=== PATIENT | male | born 1975 | race American Indian/Alaskan Native ===

== ENCOUNTER 2020-10-04 05:55 | Observation (INO) | payer OTHER ==
--- NOTE | 2020-10-04 07:08 | Emergency Department Report ---
ED Shortness of Breath HPI - General Stated Complaint: KEVIN/ASTHMA Time Seen by Provider: 10/04/20 07:01 - History of Present Illness Initial Comments: 45-year-old male, history of asthma, presents to ED with difficulty breathing. Patient states over the last 4 days he has been having increased bleeding. States he ran out of his albuterol inhaler. EMS was called this morning. They report patient was in tripod position, with O2 sats of 84% on room air. He was given albuterol 10 mg nebulizer, Decadron 20 mg by EMS. Patient denies any fever. Reports cough. Reports he is fully vaccinated against COVID-19 with Moderna vaccine 3 months ago. Patient reports tobacco and marijuana use. MD Complaint: "asthma attack" -: days(s) (4) Severity: moderate Improves With: bronchodilators Worsens With: exertion, other (Smoking) Known History Of: asthma Associated Symptoms: cough Treatments Prior to Arrival: bronchodilator, other (Decadron) - Related Data Home Oxygen Therapy: No Allergies Allergy/AdvReac Type Severity Reaction Status Date / Time No Known Allergies Allergy Unverified 10/04/20 08:04 ED Review of Systems ROS: Stated complaint: KEVIN/ASTHMA Other details as noted in HPI Comment: All other systems reviewed and negative Constitutional: denies: fever Respiratory: cough, shortness of breath, wheezing ED Physical Exam - General General appearance: alert - Head Head exam: Present: atraumatic, normocephalic - Eye Eye exam: Present: normal appearance, EOMI - ENT ENT exam: Present: mucous membranes moist - Neck Neck exam: Present: normal inspection - Respiratory Respiratory exam: Present: wheezes, other (Tachypnea present) - Cardiovascular Cardiovascular Exam: Present: normal rhythm, tachycardia - GI/Abdominal GI/Abdominal exam: Present: soft. Absent: distended, tenderness - Extremities Exam Extremities exam: Present: normal inspection - Neurological Exam Neurological exam: Present: alert, oriented X3 - Psychiatric Psychiatric exam: Present: normal affect, normal mood - Skin Skin exam: Present: warm, dry, intact, normal color ED Course Vital Signs 10/04/20 10/04/20 10/04/20 07:19 09:21 09:30 Temperature 98.6 F Pulse Rate 112 H 123 H Pulse Rate [ 108 H Anterior Bilateral Throughout] Respiratory 22 20 Rate Respiratory 22 Rate [Anterior Bilateral Throughout] Blood Pressure 156/110 Blood Pressure 164/114 [Left] O2 Sat by Pulse 93 90 Oximetry 10/04/20 10/04/20 10/04/20 10:00 10:28 10:30 Temperature Pulse Rate 114 H 118 H Pulse Rate [ 109 H Anterior Bilateral Throughout] Respiratory 16 22 Rate Respiratory 26 H Rate [Anterior Bilateral Throughout] Blood Pressure 163/100 164/110 Blood Pressure [Left] O2 Sat by Pulse 89 91 Oximetry 10/04/20 10/04/20 10/04/20 10:46 11:00 11:15 Temperature Pulse Rate 113 H 117 H 121 H Pulse Rate [ Anterior Bilateral Throughout] Respiratory 25 H 30 H 20 Rate Respiratory Rate [Anterior Bilateral Throughout] Blood Pressure 166/106 163/107 161/108 Blood Pressure [Left] O2 Sat by Pulse 91 92 93 Oximetry 10/04/20 10/04/20 10/04/20 11:30 11:48 12:02 Temperature Pulse Rate Pulse Rate [ Anterior Bilateral Throughout] Respiratory Rate Respiratory Rate [Anterior Bilateral Throughout] Blood Pressure 161/108 161/108 161/108 Blood Pressure [Left] O2 Sat by Pulse 94 80 L 77 L Oximetry 10/04/20 10/04/20 10/04/20 12:15 12:49 14:10 Temperature Pulse Rate 65 Pulse Rate [ Anterior Bilateral Throughout] Respiratory 13 Rate Respiratory Rate [Anterior Bilateral Throughout] Blood Pressure 161/108 161/108 161/108 Blood Pressure [Left] O2 Sat by Pulse 87 85 95 Oximetry ED Medical Decision Making - Lab Data Result diagrams: 10/04/20 11:46 10/04/20 11:46 - Radiology Data Radiology results: report reviewed, image reviewed - Medical Decision Making 45-year-old male, history of asthma, presents to ED with acute asthma exacerbation. Patient received 10 mg albuterol nebulizer from EMS, along with IV Decadron 20 mg. Upon arrival here in the ED he received another albuterol 5 mg/Atrovent 0.5 mg nebulizer and magnesium sulfate 2 g IV. Upon reevaluation, patient still have coarse wheezing throughout. Another albuterol 5 mg/Atrovent 0.5 mg nebulizer treatment was given. Patient feeling better, however with ambulation, O2 sats dropped to 89% and patient became tachypneic again. Chest x-ray is normal. Labs unremarkable. Patient will be admitted to hospitalist, Dr. Khan, for further management. - Differential Diagnosis Asthma, pneumonia Critical Care Time: Yes Critical care time in (mins) excluding proc time.: 35 Critical care attestation.: If time is entered above; I have spent that time in minutes in the direct care of this critically ill patient, excluding procedure time. Critical Care Time: 35 min ED Disposition Clinical Impression: Status asthmaticus, Hypoxia Disposition: 09 OP ADMIT IP TO THIS HOSP Is pt being admited?: Yes Condition: Stable Time of Disposition: 11:32
--- NOTE | 2020-10-04 07:45 | XRay Report ---
CHEST 1 VIEW 10/04/2020 6:38 AM INDICATION / CLINICAL INFORMATION: SOB, asthma. COMPARISON: None available. FINDINGS: SUPPORT DEVICES: None. HEART / MEDIASTINUM: No significant abnormality. LUNGS / PLEURA: No significant pulmonary abnormality. No significant pleural effusion. No pneumothora x. ADDITIONAL FINDINGS: No significant additional findings. IMPRESSION: 1. No acute abnormality of the chest. Signer Name: Demar Grider MD Signed: 10/04/2020 7:40 AM Workstation Name: [id number]
[2020-10-04] MEDS ORDERED: MAGNESIUM SULFATE 2 GM/50 ML BAG IV NR (08:30)
[2020-10-04] MEDS ORDERED: IPRATROPIUM 0.02% NEBU 2.5 ML IH NR (08:30)
[2020-10-04] MEDS ORDERED: ALBUTEROL 2.5 MG/3 ML NEBU IH NR (08:30)
[2020-10-04] MEDS ORDERED: ALBUTEROL 2.5 MG/3 ML NEBU IH ONE (10:16)
[2020-10-04] MEDS ORDERED: IPRATROPIUM 0.02% NEBU 2.5 ML IH ONE (10:16)
[2020-10-04 12:43] LABS: Hemoglobin 16.4 gm/dl (11.8-15.2); Mean Corpuscular HGB Conc 33 % (32-34); Mean Corpuscular Volume 89 fl (84-94); Platelet Count 462 K/mm3 (140-440)
[2020-10-04 13:01] LABS: BUN/Creatinine Ratio 10; Blood Urea Nitrogen 10 mg/dL (9-20); Calcium 10.1 mg/dL (8.4-10.2); Hemolysis Index 22
--- NOTE | 2020-10-04 14:45 | History and Physical Report ---
History of Present Illness Date of examination: 10/04/20 Date of admission: 10/04/20 11:56 Chief complaint: Shortness of breath and wheezing for 2 days History of present illness: 45-year-old -[place] male with history of asthma on albuterol MDI has been short of breath and wheezing for last 48 to 72 hours. Patient says that he has been smoking off and on and stopped smoking 2 weeks ago and restarted again couple days ago which has precipitated his wheezing and cough. Patient wheezing a lot and cough productive of mucoid sputum. No fever or chills. Patient had vaccination--Covid vaccination probably Moderna. No loss of smell or taste. Wheezing excessively. No exacerbating or relieving factors except smoking which exacerbates. Relieved with bronchodilators. Past History Past Medical History: other (Asthma) Past Surgical History: No surgical history Social history: lives with family, full code Family history: hypertension Medications and Allergies Allergies Allergy/AdvReac Type Severity Reaction Status Date / Time No Known Allergies Allergy Unverified 10/04/20 08:04 Review of Systems All systems: negative Constitutional: no weight loss, no weight gain, no fever, no chills, no sweats, no night sweats Ears, nose, mouth and throat: no ear pain, no ear discharge, no tinnitis, no decreased hearing Cardiovascular: shortness of breath, no chest pain, no orthopnea, no palpitations, no rapid/irregular heart beat, no lightheadedness Respiratory: cough, cough with sputum, wheezing Gastrointestinal: no abdominal pain, no nausea, no vomiting, no diarrhea Genitourinary Male: no dysuria, no hematuria, no flank pain, no discharge, no urinary frequency, no urinary hesitancy Rectal: incontinence Musculoskeletal: no neck stiffness, no neck pain Integumentary: no rash, no pruritis Neurological: no head injury, no transient paralysis, no paralysis, no weakness Psychiatric: no anxiety, no memory loss, no change in sleep habits, no sleep disturbances, no insomnia Endocrine: no polyphagia, no excessive thirst, no polydipsia, no polyuria Hematologic/Lymphatic: no easy bruising Allergic/Immunologic: allergic rhinitis, no wheezing Exam - Constitutional Vitals: Temp Pulse Resp BP Pulse Ox 98.6 F 65 13 161/108 95 10/04/20 07:19 10/04/20 14:10 10/04/20 14:10 10/04/20 14:10 10/04/20 14:10 General appearance: Present: mild distress, well-nourished - EENT Eyes: Present: PERRL ENT: hearing intact, clear oral mucosa - Neck Neck: Present: supple, normal ROM - Respiratory Respiratory effort: normal Respiratory: bilateral: CTA, rhonchi, wheezing - Cardiovascular Heart rate: 88 Rhythm: regular Heart Sounds: Present: S1 & S2. Absent: rub, click - Extremities Extremities: pulses symmetrical, No edema Peripheral Pulses: within normal limits - Abdominal General gastrointestinal: Present: soft, non-tender, non-distended, normal bowel sounds Male genitourinary: Present: normal - Integumentary Integumentary: Present: clear, warm, dry - Musculoskeletal Musculoskeletal: gait normal, strength equal bilaterally - Psychiatric Psychiatric: appropriate mood/affect, intact judgment & insight - Neurologic Neurologic: CNII-XII intact, moves all extremities HEART Score - HEART Score History: Slightly suspicious Age: < 45 Risk factors: No known risk factors Troponin: < normal limit - Critical Actions Critical Actions: 0-3 pts:0.9-1.7%risk of adverse cardiac event.Candidate for discharge Results - Labs CBC & Chem 7: 10/04/20 11:46 10/04/20 11:46 Labs: Laboratory Last Values WBC 8.2 K/mm3 (4.5-11.0) 10/04/20 11:46 RBC 5.60 M/mm3 (3.65-5.03) H 10/04/20 11:46 Hgb 16.4 gm/dl (11.8-15.2) H 10/04/20 11:46 Hct 50.0 % (35.5-45.6) H 10/04/20 11:46 MCV 89 fl (84-94) 10/04/20 11:46 MCH 29 pg (28-32) 10/04/20 11:46 MCHC 33 % (32-34) 10/04/20 11:46 RDW 14.0 % (13.2-15.2) 10/04/20 11:46 Plt Count 462 K/mm3 (140-440) H 10/04/20 11:46 Seg Neutrophils % Hazmat Cdl A Driver 10/04/20 11:46 Sodium 137 mmol/L (137-145) 10/04/20 11:46 Potassium 4.5 mmol/L (3.6-5.0) 10/04/20 11:46 Chloride 92.7 mmol/L (98-107) L 10/04/20 11:46 Carbon Dioxide 30 mmol/L (22-30) 10/04/20 11:46 Anion Gap 19 mmol/L 10/04/20 11:46 BUN 10 mg/dL (9-20) 10/04/20 11:46 Creatinine 1.0 mg/dL (0.8-1.3) 10/04/20 11:46 Estimated GFR > 60 ml/min 10/04/20 11:46 BUN/Creatinine Ratio 10 % 10/04/20 11:46 Glucose 170 mg/dL (75-100) H 10/04/20 11:46 Calcium 10.1 mg/dL (8.4-10.2) 10/04/20 11:46 - Imaging and Cardiology Chest x-ray: report reviewed Imaging and Cardiology: Chest x-ray No acute abnormality of the chest Assessment and Plan Advance Directives: Yes (Full code ) VTE prophylaxis?: Chemical Plan of care discussed with patient/family: Yes - Patient Problems (1) Acute respiratory failure with hypoxia Current Visit: Yes Status: Acute Plan to address problem: Patient was initially hypoxic Stabilized now After nebulizer treatments Continue oxygen supplementation (2) Asthma exacerbation Current Visit: Yes Status: Acute Qualifiers: Asthma severity: moderate Plan to address problem: Patient is tachypneic and accessory muscles of respiration are prominent DuoNeb's [id number] and every 3 as needed IV Solu-Medrol 125 every 8 hours IV Levaquin 750 mg every 24 Pulmicort twice daily Patient also started on Singulair to prevent asthma attacks (3) Polycythemia due to fall in plasma volume Current Visit: Yes Status: Acute Plan to address problem: Probably secondary to volume depletion IV normal saline for now Recheck hemoglobin and hematocrit tomorrow (4) Hyperglycemia Current Visit: Yes Status: Acute Plan to address problem: Patient is a blood glucose level of 172 No history of diabetes May have latent diabetes We will get your hemoglobin A1c In the meantime we will be doing insulin coverage Will defer to primary team to take care of the hyperglycemia (5) DVT prophylaxis Current Visit: Yes Status: Acute Plan to address problem: Patient on heparin subcu and GI prophylaxis
[2020-10-04 15:16] LABS: Band Neutrophils # (Manual) 0.1 K/mm3; Platelet Estimate Consistent w Auto; RBC Morphology Normal; Total Cells Counted 100
[2020-10-04] MEDS ORDERED: ACETAMINOPHEN 325 MG TAB PO PRN (15:30)
[2020-10-04] MEDS ORDERED: SODIUM CHLORIDE 0.9% 1000 ML 1,000 ML IV SCH (16:00)
[2020-10-04] MEDS ORDERED: METOCLOPRAMIDE 10 MG/2 ML INJ IV PRN (16:00)
[2020-10-04] MEDS ORDERED: ONDANSETRON 4 MG/2 ML INJ IV PRN (16:00)
[2020-10-04] MEDS ORDERED: HYDROmorphone 1 MG/1 ML INJ IV PRN (16:00)
[2020-10-04] MEDS ORDERED: oxyCODONE /ACETAMINOPHEN 5-325MG TAB PO PRN (16:00)
[2020-10-04] MEDS: methylPREDNISolone Sod Succinate 125 MG/2 ML INJ IV SCH ×2 (16:18→22:04)
[2020-10-04] MEDS: FAMOTIDINE 20 MG/2 ML INJ IV SCH ×2 (16:18→22:11)
[2020-10-04] MEDS: IPRATROPIUM/ALBUTEROL SULFATE 3 ML AMPUL.NEB IH PRN (16:27)
[2020-10-04] MEDS: IPRATROPIUM/ALBUTEROL SULFATE 3 ML AMPUL.NEB IH SCH ×2 (16:31→20:06)
[2020-10-04] MEDS: BUDESONIDE 0.5 MG/2 ML NEBU IH SCH (20:06)
[2020-10-04] MEDS: HEPARIN 5,000 UNIT/1 ML VIAL SUB-Q SCH (22:07)
[2020-10-04] MEDS: MONTELUKAST 10 MG TAB PO SCH (22:08)
[2020-10-04] MEDS: guaiFENesin 100 MG/5 ML ORAL LIQD PO PRN (23:06)
[2020-10-05] MEDS ORDERED: hydrALAZINE 20 MG/1 ML INJ IV PRN (05:50)
[2020-10-05 06:12] LABS: Basophils % (Auto) 0.3 % (0.0-1.8); Lymphocytes % (Auto) 9.4 % (13.4-35.0); Monocytes # (Auto) 0.5 K/mm3 (0.0-0.8); Monocytes % (Auto) 4.1 % (0.0-7.3)
[2020-10-05 06:17] LABS: Hematocrit 44.1 % (35.5-45.6); Mean Corpuscular HGB Conc 34 % (32-34); Mean Corpuscular Volume 89 fl (84-94); Platelet Count 399 K/mm3 (140-440); Red Blood Count 4.96 M/mm3 (3.65-5.03); Red Cell Distribution Width 13.6 % (13.2-15.2)
[2020-10-05] MEDS: guaiFENesin 100 MG/5 ML ORAL LIQD PO PRN ×3 (06:21→20:40)
[2020-10-05] MEDS: methylPREDNISolone Sod Succinate 125 MG/2 ML INJ IV SCH (06:21)
[2020-10-05 06:35] LABS: Alanine Aminotransferase 40 units/L (7-56); Albumin 4.6 g/dL (3.9-5); BUN/Creatinine Ratio 14; Blood Urea Nitrogen 13 mg/dL (9-20); Calcium 9.7 mg/dL (8.4-10.2); Hemolysis Index 13
[2020-10-05] MEDS: BUDESONIDE 0.5 MG/2 ML NEBU IH SCH ×2 (08:57→21:19)
[2020-10-05] MEDS: IPRATROPIUM/ALBUTEROL SULFATE 3 ML AMPUL.NEB IH SCH ×4 (08:57→21:19)
[2020-10-05] MEDS: FAMOTIDINE 20 MG TAB PO SCH ×2 (09:28→22:09)
[2020-10-05] MEDS: HEPARIN 5,000 UNIT/1 ML VIAL SUB-Q SCH ×2 (09:28→22:09)
--- NOTE | 2020-10-05 11:53 | Progress Note ---
Assessment and Plan Assessment and plan: (1) Acute respiratory failure with hypoxia Current Visit: Yes Status: Acute Plan to address problem: Patient was initially hypoxic Stabilized now After nebulizer treatments Continue oxygen supplementation (2) Asthma exacerbation Current Visit: Yes Status: Acute Qualifiers: Asthma severity: moderate Plan to address problem: Patient is tachypneic and accessory muscles of respiration are prominent DuoNeb's [id number] and every 3 as needed IV Solu-Medrol 125 every 8 hours IV Levaquin 750 mg every 24 Pulmicort twice daily Patient also started on Singulair to prevent asthma attacks (3) Polycythemia due to fall in plasma volume Current Visit: Yes Status: Acute Plan to address problem: Probably secondary to volume depletion IV normal saline for now Recheck hemoglobin and hematocrit tomorrow (4) Hyperglycemia Current Visit: Yes Status: Acute Plan to address problem: Patient is a blood glucose level of 172 No history of diabetes May have latent diabetes We will get your hemoglobin A1c In the meantime we will be doing insulin coverage Will defer to primary team to take care of the hyperglycemia (5) DVT prophylaxis Current Visit: Yes Status: Acute Plan to address problem: Patient on heparin subcu and GI prophylaxis 10/05/2020 -Patient is on 2 L of oxygen, 6-minute walk was done and patient desat to 87%. We will continue with treatment of asthma exacerbation. Patient will be di scharged likely tomorrow. History Interval history: Patient was seen and evaluated this morning Patient stated shortness of breath is getting better Hospitalist Physical - Physical exam Narrative exam: Not in cardiopulmonary distress. The patient appeared well nourished and normally developed. Vital signs as documented. Head exam is unremarkable. No scleral icterus . Neck is without jugular venous distension, thyromegaly, or carotid bruits. Lungs wheezing all over the chest. Cardiac exam reveals regular rate and Rhythm. Abdominal exam reveals normal bowel sounds, nontender, no organomegaly. Extremities are nonedematous and both femoral and pedal pulses are normal. COST MANAGER: Alert and oriented 3. No focal weakness. - Constitutional Vitals: Temp Pulse Resp BP Pulse Ox 98.1 F 118 H 20 193/100 94 10/05/20 05:45 10/05/20 08:57 10/05/20 08:57 10/05/20 06:29 10/05/20 09:03 General appearance: Present: mild distress, well-nourished HEART Score - HEART Score Age: < 45 Risk factors: No known risk factors Troponin: < normal limit - Critical Actions Critical Actions: 0-3 pts:0.9-1.7%risk of adverse cardiac event.Candidate for discharge Results - Labs CBC & Chem 7: 10/05/20 05:35 10/05/20 05:35 Labs: Laboratory Last Values WBC 11.0 K/mm3 (4.5-11.0) 10/05/20 05:35 RBC 4.96 M/mm3 (3.65-5.03) 10/05/20 05:35 Hgb 15.0 gm/dl (11.8-15.2) 10/05/20 05:35 Hct 44.1 % (35.5-45.6) 10/05/20 05:35 MCV 89 fl (84-94) 10/05/20 05:35 MCH 31 pg (28-32) 10/05/20 05:35 MCHC 34 % (32-34) 10/05/20 05:35 RDW 13.6 % (13.2-15.2) 10/05/20 05:35 Plt Count 399 K/mm3 (140-440) 10/05/20 05:35 Lymph % (Auto) 9.4 % (13.4-35.0) L 10/05/20 05:35 [place] % (Auto) 4.1 % (0.0-7.3) 10/05/20 05:35 Eos % (Auto) 0.0 % (0.0-4.3) 10/05/20 05:35 Baso % (Auto) 0.3 % (0.0-1.8) 10/05/20 05:35 Lymph # (Auto) 1.0 K/mm3 (1.2-5.4) L 10/05/20 05:35 [place] # (Auto) 0.5 K/mm3 (0.0-0.8) 10/05/20 05:35 Eos # (Auto) 0.0 K/mm3 (0.0-0.4) 10/05/20 05:35 Baso # (Auto) 0.0 K/mm3 (0.0-0.1) 10/05/20 05:35 Add Manual Diff Complete 10/04/20 11:46 Total Counted 100 10/04/20 11:46 Seg Neutrophils % 86.2 % (40.0-70.0) H 10/05/20 05:35 Seg Neuts % (Manual) 91.0 % (40.0-70.0) H 10/04/20 11:46 Band Neutrophils % 1.0 % 10/04/20 11:46 Lymphocytes % (Manual) 7.0 % (13.4-35.0) L 10/04/20 11:46 Monocytes % (Manual) 1.0 % (0.0-7.3) 10/04/20 11:46 Nucleated RBC % Not Reportable 10/04/20 11:46 Seg Neutrophils # 9.4 K/mm3 (1.8-7.7) H 10/05/20 05:35 Seg Neutrophils # Man 7.5 K/mm3 (1.8-7.7) 10/04/20 11:46 Band Neutrophils # 0.1 K/mm3 10/04/20 11:46 Lymphocytes # (Manual) 0.6 K/mm3 (1.2-5.4) L 10/04/20 11:46 Abs React Lymphs (Man) 0.0 K/mm3 10/04/20 11:46 Monocytes # (Manual) 0.1 K/mm3 (0.0-0.8) 10/04/20 11:46 Eosinophils # (Manual) 0.0 K/mm3 (0.0-0.4) 10/04/20 11:46 Basophils # (Manual) 0.0 K/mm3 (0.0-0.1) 10/04/20 11:46 Metamyelocytes # 0.0 K/mm3 10/04/20 11:46 Myelocytes # 0.0 K/mm3 10/04/20 11:46 Promyelocytes # 0.0 K/mm3 10/04/20 11:46 Blast Cells # 0.0 K/mm3 10/04/20 11:46 WBC Morphology Not Reportable 10/04/20 11:46 Hypersegmented Neuts Not Reportable 10/04/20 11:46 Hyposegmented Neuts Not Reportable 10/04/20 11:46 Hypogranular Neuts Not Reportable 10/04/20 11:46 Smudge Cells Not Reportable 10/04/20 11:46 Toxic Granulation Not Reportable 10/04/20 11:46 Toxic Vacuolation Not Reportable 10/04/20 11:46 Dohle Bodies Not Reportable 10/04/20 11:46 Pelger-Huet Anomaly Not Reportable 10/04/20 11:46 Brittani Rods Not Reportable 10/04/20 11:46 Platelet Estimate Consistent w auto 10/04/20 11:46 Clumped Platelets Not Reportable 10/04/20 11:46 Plt Clumps, EDTA Not Reportable 10/04/20 11:46 Large Platelets Not Reportable 10/04/20 11:46 Giant Platelets Not Reportable 10/04/20 11:46 Platelet Satelliting Not Reportable 10/04/20 11:46 Plt Morphology Comment Not Reportable 10/04/20 11:46 RBC Morphology Normal 10/04/20 11:46 Dimorphic RBCs Not Reportable 10/04/20 11:46 Polychromasia Not Reportable 10/04/20 11:46 Hypochromasia Not Reportable 10/04/20 11:46 Poikilocytosis Not Reportable 10/04/20 11:46 Anisocytosis Not Reportable 10/04/20 11:46 Microcytosis Not Reportable 10/04/20 11:46 Macrocytosis Not Reportable 10/04/20 11:46 Spherocytes Not Reportable 10/04/20 11:46 Pappenheimer Bodies Not Reportable 10/04/20 11:46 Sickle Cells Not Reportable 10/04/20 11:46 Target Cells Not Reportable 10/04/20 11:46 Tear Drop Cells Not Reportable 10/04/20 11:46 Ovalocytes Not Reportable 10/04/20 11:46 Helmet Cells Not Reportable 10/04/20 11:46 Obrien-Crary Bodies Not Reportable 10/04/20 11:46 [place] Rings Not Reportable 10/04/20 11:46 Tiffanie Cells Not Reportable 10/04/20 11:46 Bite Cells Not Reportable 10/04/20 11:46 Crenated Cell Not Reportable 10/04/20 11:46 Elliptocytes Not Reportable 10/04/20 11:46 Acanthocytes (Spur) Not Reportable 10/04/20 11:46 Rouleaux Not Reportable 10/04/20 11:46 Hemoglobin C Crystals Not Reportable 10/04/20 11:46 Schistocytes Not Reportable 10/04/20 11:46 Malaria parasites Not Reportable 10/04/20 11:46 Seb Bodies Not Reportable 10/04/20 11:46 Hem Pathologist Commnt No 10/04/20 11:46 Sodium 137 mmol/L (137-145) 10/05/20 05:35 Potassium 4.9 mmol/L (3.6-5.0) 10/05/20 05:35 Chloride 96.2 mmol/L (98-107) L 10/05/20 05:35 Carbon Dioxide 32 mmol/L (22-30) H 10/05/20 05:35 Anion Gap 14 mmol/L 10/05/20 05:35 BUN 13 mg/dL (9-20) 10/05/20 05:35 Creatinine 0.9 mg/dL (0.8-1.3) 10/05/20 05:35 Estimated GFR > 60 ml/min 10/05/20 05:35 BUN/Creatinine Ratio 14 % 10/05/20 05:35 Glucose 121 mg/dL (75-100) H 10/05/20 05:35 Hemoglobin A1c 5.7 % (4-6) 10/05/20 05:35 Calcium 9.7 mg/dL (8.4-10.2) 10/05/20 05:35 Total Bilirubin 0.20 mg/dL (0.1-1.2) 10/05/20 05:35 AST 33 units/L (5-40) 10/05/20 05:35 ALT 40 units/L (7-56) 10/05/20 05:35 Alkaline Phosphatase 57 units/L (35-129) 10/05/20 05:35 Total Protein 8.0 g/dL (6.3-8.2) 10/05/20 05:35 Albumin 4.6 g/dL (3.9-5) 10/05/20 05:35 Albumin/Globulin Ratio 1.4 % 10/05/20 05:35 Alfred/IV: Voiding Method Toilet Active Medications - Current Medications Current Medications: Generic Name Dose Route Start Last Admin Trade Name Freq PRN Reason Stop Dose Admin Acetaminophen 650 mg 10/04/20 15:30 Acetaminophen 325 Mg Tab PO Q4H PRN Pain MILD(1-3)/Fever >100.5/BARRERA Albuterol/Ipratropium 1 ampul 10/04/20 15:30 10/04/20 16:27 Ipratropium/Albuterol Sulfate 3 Ml Ampul.Neb IH 1 ampul Q3H PRN Administration Wheezing Albuterol/Ipratropium 1 ampul 10/04/20 16:00 10/05/20 08:57 Ipratropium/Albuterol Sulfate 3 Ml Ampul.Neb IH 1 ampul QIDRT PRERNA Administration Budesonide 0.5 mg 10/04/20 20:00 10/05/20 08:57 Budesonide 0.5 Mg/2 Ml Nebu IH 0.5 mg Q12HRT PRERNA Administration Famotidine 20 mg 10/05/20 10:00 10/05/20 09:28 Famotidine 20 Mg Tab PO 20 mg BID PRERNA Administration Guaifenesin 200 mg 10/04/20 22:37 10/05/20 06:21 Guaifenesin 100 Mg/5 Ml Oral Liqd PO 200 mg Q8H PRN Administration Cough Heparin Sodium (Porcine) 5,000 unit 10/04/20 22:00 10/05/20 09:28 Heparin 5,000 Unit/1 Ml Vial SUB-Q 5,000 unit Q12HR PRERNA Administration Hydralazine HCl 10 mg 10/05/20 05:50 10/05/20 06:29 Hydralazine 20 Mg/1 Ml Inj IV 10 mg Q6H PRN Administration Hypertension Hydromorphone HCl 0.5 mg 10/04/20 16:00 Hydromorphone 1 Mg/1 Ml Inj IV Q3H PRN Pain , Severe (7-10) Sodium Chloride 1,000 mls @ 125 mls/hr 10/04/20 16:00 Nacl 0.9% 1000 Ml IV DIRECT PRERNA Levofloxacin/Dextrose 750 mg in 150 mls @ 100 mls/hr 10/04/20 16:00 10/05/20 10:20 Levaquin 750mg/150ml IV 10/08/20 15:59 100 mls/hr Q24HR PRERNA Administration Protocol Methylprednisolone Sodium Succinate 125 mg 10/04/20 16:00 10/05/20 06:21 Methylprednisolone Sod Succinate 125 Mg/2 Ml Inj IV 125 mg Q8HR PRERNA Administration Metoclopramide HCl 10 mg 10/04/20 16:00 Metoclopramide 10 Mg/2 Ml Inj IV Q6H PRN Nausea And Vomiting Montelukast Sodium 10 mg 10/04/20 22:00 10/04/20 22:08 Montelukast 10 Mg Tab PO 10 mg QHS PRERNA Administration Ondansetron HCl 4 mg 10/04/20 16:00 10/04/20 16:18 Ondansetron 4 Mg/2 Ml Inj IV 4 mg Q8H PRN Administration Nausea And Vomiting Oxycodone/Acetaminophen 1 tab 10/04/20 16:00 Oxycodone /Acetaminophen 5-325mg Tab PO Q6H PRN Pain, Moderate (4-6) Sodium Chloride 10 ml 10/04/20 22:00 10/05/20 09:29 Sodium Chloride 0.9% 10 Ml Flush Syringe IV 10 ml BID PRERNA Administration Sodium Chloride 10 ml 10/04/20 16:00 10/04/20 22:08 Sodium Chloride 0.9% 10 Ml Flush Syringe IV 10 ml PRN PRN Administration LINE FLUSH
[2020-10-05] MEDS ORDERED: methylPREDNISolone Sod Succinate 125 MG/2 ML INJ IV SCH (11:54)
[2020-10-05] MEDS: methylPREDNISolone Sod Succinate 40 MG/1 ML INJ IV SCH ×2 (13:24→21:58)
[2020-10-05] MEDS: IPRATROPIUM/ALBUTEROL SULFATE 3 ML AMPUL.NEB IH PRN (17:04)
[2020-10-05] MEDS: MONTELUKAST 10 MG TAB PO SCH (22:09)
[2020-10-06] MEDS: methylPREDNISolone Sod Succinate 40 MG/1 ML INJ IV SCH (05:48)
[2020-10-06] MEDS: BUDESONIDE 0.5 MG/2 ML NEBU IH SCH (08:10)
[2020-10-06] MEDS: IPRATROPIUM/ALBUTEROL SULFATE 3 ML AMPUL.NEB IH SCH (08:10)
[2020-10-06] MEDS: FAMOTIDINE 20 MG TAB PO SCH (10:22)
[2020-10-06] MEDS: HEPARIN 5,000 UNIT/1 ML VIAL SUB-Q SCH (10:22)
--- NOTE | 2020-10-06 11:29 | Discharge Summary ---
Providers - Providers Date of Admission: 10/04/20 11:56 Date of discharge: 10/06/20 Attending physician: CHATO NAIR MD Primary care physician: CLINICAL STAFF ANESTHESIOLOGIST Hospitalization Reason for admission: Asthma exacerbation Condition: Stable Hospital course: History of present illness: 45-year-old -[place] Citizen male with history of asthma on albuterol MDI has been short of breath and wheezing for last 48 to 72 hours. Patient says that he has been smoking off and on and stopped smoking 2 weeks ago and restarted again couple days ago which has precipitated his wheezing and cough. Patient wheezing a lot and cough productive of mucoid sputum. No fever or chills. Patient had vaccination--Covid vaccination probably Moderna. No loss of smell or taste. Wheezing excessively. No exacerbating or relieving factors except smoking which exacerbates. Relieved with bronchodilators. Hospital course Patient was admitted to the floor and was managed according to asthma exacerbation protocol. Patient showed improvement. Patient was saturating 95% after 6-minute of walk. Patient discharged home with Decadron, albuterol and Singulair. Patient is hemodynamically stable at the time of discharge. Patient advised to have follow-up with his primary care physician. Patient was hemodynamically stable at time of discharge and management plan was discussed with the patient was in agreement with the plan of care. Disposition: DC-01 TO HOME OR SELFCARE Final Discharge Diagnosis (Prints w/discharge instructions): Asthma exacerbation. Acute hypoxic respiratory failure Time spent for discharge: 31 minutes - Discharge Diagnoses (1) Acute respiratory failure with hypoxia Status: Acute (2) Asthma exacerbation Status: Acute Qualifiers: Asthma severity: moderate Core Measure Documentation - Palliative Care Palliative Care/ Comfort Measures: Not Applicable - Core Measures Any of the following diagnoses?: none Exam - Physical Exam Narrative exam: Not in cardiopulmonary distress. The patient appeared well nourished and normally developed. Vital signs as documented. Head exam is unremarkable. No scleral icterus . Neck is without jugular venous distension, thyromegaly, or carotid bruits. Lungs wheezing all over the chest, good airflow. Cardiac exam reveals regular rate and Rhythm. Abdominal exam reveals normal bowel sounds, nontender, no organomegaly. Extremities are nonedematous and both femoral and pedal pulses are normal. CRM ARCHITECT: Alert and oriented 3. No focal weakness. - Constitutional Vitals: Temp Pulse Resp BP Pulse Ox 98.0 F 85 18 138/88 95 10/06/20 04:53 10/06/20 08:10 10/06/20 08:10 10/06/20 04:53 10/06/20 09:17 Plan Activity: no restrictions Weight Bearing Status: Full Weight Bearing Follow up with: PRIMARY CARE, [Primary Care Provider] - 3-5 Days Forms: AMA Form, Work/School Release Form(ED) Prescriptions: Montelukast [Singulair] 10 mg PO QHS #30 tablet methylPREDNISolone [Medrol 4MG DOSEPAK (21 tabs)] 4 mg PO DAILY #1 tab.ds.pk Albuterol Sulfate [Proair Respiclick] 90 mcg IH PRN PRN #1 PRN Reason: Shortness Of Breath
[2020-10-06 12:30] VITALS: BP 153/95
[2020-10-06] MEDS ORDERED: IPRATROPIUM/ALBUTEROL SULFATE 3 ML AMPUL.NEB IH SCH (14:00)
== END 2020-10-06 13:00 | disposition home or self-care (01) ==
LOC: ED 05:55 → 3A 11:56
PROVIDERS: ADMIT Internal Medicine; ATTEND Internal Medicine
DX: J96.01 Acute respiratory failure with hypoxia (principal); J45.901 Unspecified asthma with (acute) exacerbation; J45.902 Unspecified asthma with status asthmaticus; D75.1 Secondary polycythemia; R73.9 Hyperglycemia, unspecified
CPT/HCPCS: 36415; 71045; 80048; 80053; 83036; 85025; 94640; 94644; 96365; 96366; 96367; 96372; 96375; 96376; 99291; G0378; J0360; J1644; J1956; J2405; J2920; J2930; J3475; 85007

== ENCOUNTER 2020-12-13 17:40 | Emergency (ER) | payer SELFPAY ==
[2020-12-13 17:47] VITALS: BP 137/91
--- NOTE | 2020-12-13 20:27 | XRay Report ---
XR chest routine 2V INDICATION / CLINICAL INFORMATION: Chest Pain. COMPARISON: 09/26/2020 FINDINGS: SUPPORT DEVICES: None. HEART /PULMONARY VASCULATURE: No significant abnormality. LUNGS / PLEURA: No significant pulmonary or pleural abnormality. No pneumothorax. ADDITIONAL FINDINGS: No significant additional findings. IMPRESSION: 1. No acute findings. Signer Name: Bob Rodriguez MD Signed: 12/13/2020 8:23 PM Workstation Name: [id number]
[2020-12-13 21:57] LABS: Basophils # (Auto) 0.1 K/mm3 (0.0-0.1); Basophils % (Auto) 1.1 % (0.0-1.8); Eosinophils # (Auto) 0.2 K/mm3 (0.0-0.4); Eosinophils % (Auto) 2.8 % (0.0-4.3); Hemoglobin 14.8 gm/dl (11.8-15.2); Lymphocytes # (Auto) 2.3 K/mm3 (1.2-5.4); Lymphocytes % (Auto) 32.4 % (13.4-35.0); Mean Corpuscular HGB Conc 34 % (32-34); Mean Corpuscular Volume 87 fl (84-94); Monocytes # (Auto) 0.5 K/mm3 (0.0-0.8); Monocytes % (Auto) 7.3 % (0.0-7.3); Platelet Count 359 K/mm3 (140-440); Red Blood Count 5.07 M/mm3 (3.65-5.03)
[2020-12-13 21:58] LABS: Alanine Aminotransferase 17 units/L (7-56); Albumin 4.1 g/dL (3.9-5); BUN/Creatinine Ratio 17; Blood Urea Nitrogen 15 mg/dL (9-20); Calcium 9.4 mg/dL (8.4-10.2); Hemolysis Index 2
--- NOTE | 2020-12-14 00:27 | Emergency Department Report ---
ED Chest Pain HPI - General Chief Complaint: Chest Pain Stated Complaint: CHEST PAIN Time Seen by Provider: 12/13/20 22:05 Source: patient Mode of arrival: Ambulatory Limitations: No Limitations - History of Present Illness Initial Comments: 45-year-old male, history of asthma, presents to ED with chest pain and shortness of breath tonight. Onset at rest. Patient reports mild tightness in the right side of his chest. He denies any cough, fever, nausea or vomiting, diaphoresis, leg pain or swelling. MD Complaint: chest pain -: This evening Onset: during rest Pain Location: right chest Pain Radiation: none Severity: mild Quality: tightness Consistency: now resolved Improves With: nothing Worsens With: nothing re: denies: nausea, vomting, diaphoresis, dyspnea Other Symptoms: denies: cough, fever, leg swelling Treatments Prior to Arrival: none - Related Data Previous Rx's Medication Instructions Recorded Last Taken Type Albuterol Sulfate [Proair 90 mcg IH PRN PRN #1 10/06/20 Unknown Rx Respiclick] Montelukast [Singulair] 10 mg PO QHS #30 tablet 10/06/20 Unknown Rx methylPREDNISolone [Medrol 4MG 4 mg PO DAILY #1 tab.ds.pk 10/06/20 Unknown Rx DOSEPAK (21 tabs)] Albuterol Sulfate [Proventil Hfa] 2 puff IH Q4HR PRN #1 hfa.aer.ad 12/14/20 Unknown Rx Allergies Allergy/AdvReac Type Severity Reaction Status Date / Time No Known Allergies Allergy Verified 10/05/20 09:17 Heart Score - HEART Score History: Slightly suspicious EKG: Normal Age: < 45 Risk factors: 1-2 risk factors Troponin: < normal limit HEART Score: 1 - EKG Read Time Time EKG Completed: 00:18 EKG Read Time: 00:22 ED Review of Systems ROS: Stated complaint: CHEST PAIN Other details as noted in HPI Comment: All other systems reviewed and negative Constitutional: denies: chills, fever Respiratory: shortness of breath. denies: cough Cardiovascular: chest pain Gastrointestinal: denies: nausea, vomiting Musculoskeletal: other (Denies leg pain or swelling) ED Past Medical Hx - Past Medical History Previous Medical History?: Yes Hx Hypertension: No Hx CVA: No Hx Heart Attack/AMI: No Hx Congestive Heart Failure: No Hx Diabetes: No Hx Deep Vein Thrombosis: No Hx Pulmonary Embolism: No Hx GERD: No Hx Liver Disease: No Hx Renal Disease: No Hx Sickle Cell Disease: No Hx Arthritis: No Hx Headaches / Migraines: No Hx Seizures: No Hx Kidney Stones: No Hx Psychiatric Treatment: No Hx Asthma: Yes Hx COPD: No Hx Tuberculosis: No Hx Dementia: No Hx HIV: No - Surgical History Hx Coronary Stent: No Hx Open Heart Surgery: No Hx Pacemaker: No Hx Internal Defibrillator: No Hx Cholecystectomy: No Hx Appendectomy: No Hx Breast Surgery: No - Social History Smoking Status: Former Smoker - Medications Home Medications: Home Medications Medication Instructions Recorded Confirmed Last Taken Type Albuterol Sulfate [Proair 90 mcg IH PRN PRN #1 10/06/20 Unknown Rx Respiclick] Montelukast [Singulair] 10 mg PO QHS #30 tablet 10/06/20 Unknown Rx methylPREDNISolone [Medrol 4MG 4 mg PO DAILY #1 tab.ds.pk 10/06/20 Unknown Rx DOSEPAK (21 tabs)] Albuterol Sulfate [Proventil Hfa] 2 puff IH Q4HR PRN #1 hfa.aer.ad 12/14/20 Unknown Rx ED Physical Exam - General Limitations: No Limitations General appearance: alert, in no apparent distress - Head Head exam: Present: atraumatic, normocephalic - Eye Eye exam: Present: normal appearance, EOMI - ENT ENT exam: Present: mucous membranes moist - Neck Neck exam: Present: normal inspection - Respiratory Respiratory exam: Present: normal lung sounds bilaterally. Absent: respiratory distress - Cardiovascular Cardiovascular Exam: Present: regular rate, normal rhythm - GI/Abdominal GI/Abdominal exam: Present: soft. Absent: distended, tenderness - Extremities Exam Extremities exam: Present: normal inspection - Neurological Exam Neurological exam: Present: alert, oriented X3 - Psychiatric Psychiatric exam: Present: normal affect, normal mood - Skin Skin exam: Present: warm, dry, intact, normal color ED Course Vital Signs 12/13/20 17:43 Temperature 97.4 F L Pulse Rate 96 H Respiratory 16 Rate Blood Pressure 137/91 [Left] O2 Sat by Pulse 95 Oximetry ED Medical Decision Making - Lab Data Result diagrams: 12/13/20 21:13 12/13/20 21:13 - EKG Data -: EKG Interpreted by Mo EKG shows normal: sinus rhythm, axis, intervals, QRS complexes, ST-T waves Rate: normal - EKG Data Interpretation: no acute changes - Radiology Data Radiology results: report reviewed, image reviewed - Medical Decision Making EKG normal. Troponin negative x2. Remainder of labs unremarkable. Chest x-ray unremarkable. Vitals are stable. O2 sat is normal, patient in no respiratory distress. Patient is requesting refill on his albuterol. He will be discharged at this time. Outpatient follow-up advised, return precautions given. - Differential Diagnosis ACS, asthma, pneumonia, atypical chest pain Critical care attestation.: If time is entered above; I have spent that time in minutes in the direct care of this critically ill patient, excluding procedure time. ED Disposition Clinical Impression: Chest pain Disposition: HOME / SELF CARE / HOMELESS Is pt being admited?: No Condition: Stable Instructions: Shortness of Breath, Adult, [id number], Nonspecific Chest Pain, Adult Prescriptions: Albuterol Sulfate [Proventil Hfa] 2 puff IH Q4HR PRN #1 hfa.aer.ad PRN Reason: Wheezing Referrals: PRIMARY CARE, [Primary Care Provider] - 3-5 Days [facility] [Provider Group] - 3-5 Days Time of Disposition: 00:27
--- NOTE | 2020-12-14 10:36 | Electrocardiograph Report ---
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
== END 2020-12-14 00:40 | disposition home or self-care (01) ==
LOC: ED 17:40
DX: R07.89 Other chest pain (principal); R06.02 Shortness of breath
CPT/HCPCS: 36415; 71046; 80053; 83690; 84484; 85025; 93005; 99283